=== PATIENT | female | born 1970 | race Hispanic/Latino ===

== ENCOUNTER → 2020-06-11 | Day surgery (SDC) | payer OTHER ==
[~2020-06-11] MED LIST: ACETAMINOPHEN 1000 MG/100 ML 100 ML IV ONE; ATORVASTATIN CA10 MG PO; BUPIVACAINE 0.25% 30ML SDV INJ ONE; CEFAZOLIN SOD 1 GM VIAL ONE; FENTANYL CITRATE/PF 100MCG/2 ML INJ ONE; HEPARIN SOD (PORCINE) 5,000 UNIT/ML VIAL ONE; HYDROMORPHONE 2MG/ML 2 MG/ML ML ONE; INSULIN REGULAR, HUMAN 100 UNIT/1 ML 3ML VIAL ONE; LEVOTHYROXINE75 MCG PO; LIDOCAINE HCL 2% LOCAL INJ 5 ML SDV VIAL INJ ONE; LYRICA75 MG PO; METFORMIN HCL500 MG PO; METOCLOPRAMIDE HCL 10 MG/2ML VIAL ONE; METOPROLOL PO; METOPROLOL TARTRATE INJ 1 MG/ML VIAL ONE; NEURONTIN300 MG PO; NORCO 10-325 T1 EACH PO; ONDANSETRON HCL INJ 2MG/ML 2ML 2 MG/ML VIAL ONE; PROPOFOL IV EMULSION 10 MG/ML 20 ML VIAL ONE; SEVOFLURANE INHAL SOLN 250 ML PEN BTL ONE; SODIUM CHLORIDE 0.9% 500ML 500 ML ONE
--- NOTE | 2020-06-11 13:14 | Operative Report ---
DATE OF PROCEDURE: 06/11/2020 SURGEON: Dustin Chacon MD PREOPERATIVE DIAGNOSIS: Breast cancer, needing IV access for chemotherapy. POSTOPERATIVE DIAGNOSIS: Breast cancer, needing IV access for chemotherapy. OPERATION PERFORMED: Placement of right subclavian venous access port under C-arm guidance. STREET LIGHT INSPECTOR: BRI Fernandez. ANESTHESIA: General. COMPLICATIONS: None. ESTIMATED BLOOD LOSS: Minimal. DESCRIPTION OF PROCEDURE: With the patient lying in bed in the supine position under good general anesthesia, the right chest and neck were prepped with Betadine solution and draped in the usual manner. The patient was placed in the Trendelenburg position and a standard left subclavian venipuncture was performed, and a guidewire was advanced into the central venous position. Using the C-arm the tip of the guidewire was confirmed to be at the level of the superior vena cava and the right lung was fully expanded. A pocket was then created in the right anterior chest to accept the reservoir. The catheter was threaded to the subclavian position. The reservoir was anchored to the anterior chest wall with interrupted sutures of 2-0 silk. The reservoir and catheter were fully heparinized and the catheter was cut to the appropriate length. The peel-away sheath introducer was then placed over the guidewire. The guidewire was removed and the catheter was threaded through the peel-away sheath. The peel-away sheath was then removed. There was good blood return and the reservoir and catheter were fully heparinized. Using the C-arm, the tip of the catheter was confirmed to be at the level of the superior vena cava and the right lung was fully expanded. The wounds were then closed in layers. The subcutaneous tissue was approximated with 3-0 and 4-0 Vicryl, and the skin was closed with subcuticular 5-0 Vicryl. Benzoin, Steri-Strips, and dressings were applied. The sponge, lap, and needle counts were correct. The patient tolerated the procedure well and returned to the recovery room in stable condition. Dustin Chacon MD JLR/MODL /[id number]
[2020-06-11 13:35] VITALS: BP 137/89
== END | disposition home or self-care (01) ==
LOC: OR 08:11
PROVIDERS: ATTEND Surgery
DX: C50.912 Malignant neoplasm of unspecified site of left female breast (principal); I10 Essential (primary) hypertension; E11.9 Type 2 diabetes mellitus without complications; E03.9 Hypothyroidism, unspecified; F32.9 Major depressive disorder, single episode, unspecified; Z01.810 Encounter for preprocedural cardiovascular examination; Z01.812 Encounter for preprocedural laboratory examination; Z11.59 Encounter for screening for other viral diseases; Z79.84 Long term (current) use of oral hypoglycemic drugs
CPT/HCPCS: 36415; 36561; 77001; 82948; 93005; C1751; J0131; J0690; J1170; J1644; J2001; J2405; J2704; J2765; J3010; J7040; U0002; J1817

== ENCOUNTER 2024-02-15 20:42 | Inpatient (IN) | payer BC ==
[~2024-02-15] VITALS: Ht 160 cm; Wt 63.5 kg
[~2024-02-15 20:42] MED LIST changes: -ACETAMINOPHEN 1000 MG/100 ML 100 ML IV ONE; -BUPIVACAINE 0.25% 30ML SDV INJ ONE; -CEFAZOLIN SOD 1 GM VIAL ONE; -FENTANYL CITRATE/PF 100MCG/2 ML INJ ONE; -HEPARIN SOD (PORCINE) 5,000 UNIT/ML VIAL ONE; -HYDROMORPHONE 2MG/ML 2 MG/ML ML ONE; -INSULIN REGULAR, HUMAN 100 UNIT/1 ML 3ML VIAL ONE; -LIDOCAINE HCL 2% LOCAL INJ 5 ML SDV VIAL INJ ONE; -METOCLOPRAMIDE HCL 10 MG/2ML VIAL ONE; -METOPROLOL TARTRATE INJ 1 MG/ML VIAL ONE; -ONDANSETRON HCL INJ 2MG/ML 2ML 2 MG/ML VIAL ONE; -PROPOFOL IV EMULSION 10 MG/ML 20 ML VIAL ONE; -SEVOFLURANE INHAL SOLN 250 ML PEN BTL ONE; -SODIUM CHLORIDE 0.9% 500ML 500 ML ONE
[2024-02-15] MEDS: SODIUM CHLORIDE 0.9% 1000ML 1,000 ML IV ONE ×2 (21:01→22:15)
[2024-02-15] MEDS: ONDANSETRON HCL INJ 2MG/ML 2ML 2 MG/ML VIAL IV STA (21:02)
[2024-02-15] MEDS: Morphine 4mg INJECTION 4 MG/ML INJ IV ONE (21:02)
[2024-02-15 21:03] LABS: BASOPHILS % 0.7 % (0.0-1.0); EOSINOPHILS # (AUTO) 0.1 (0.0-0.4); EOSINOPHILS % 1.2 % (0.0-6.0); HEMATOCRIT 25.1 % (34.2-44.1); HEMOGLOBIN 8.6 g/dL (12.0-16.0); LYMPHOCYTES # (AUTO) 0.6 (1.0-3.2); LYMPHOCYTES % 9.3 % (18.0-39.1); MEAN CORPUSCULAR HEMOGLOBIN 29.9 pg (28-32); MEAN CORPUSCULAR HGB CONC 34.3 g/dL (31-35); MEAN CORPUSCULAR VOLUME 87.2 fL (81-99); MONOCYTES # (AUTO) 0.2 (0.2-0.8); MONOCYTES % 3.7 % (4.4-11.3); NEUTROPHILS # (AUTO) 5.1 (2.1-6.9); NEUTROPHILS % 84.9 % (38.7-80.0); PLATELET COUNT 81 x10e3/uL (140-360); RED BLOOD COUNT 2.88 x10e6/uL (3.6-5.1); RED CELL DISTRIBUTION WIDTH 19.8 % (11.7-14.4); WHITE BLOOD COUNT 6.01 x10e3/uL (4.8-10.8)
[2024-02-15 21:23] LABS: TROPONIN I < 0.05 ng/mL (0.0-0.40)
[2024-02-15 21:28] LABS: ALBUMIN 2.7 g/dL (3.5-5.0); ALBUMIN/GLOBULIN RATIO 0.8 (0.8-2.0); ANION GAP 13.6 mmol/L (8-16); BILIRUBIN,TOTAL 0.9 mg/dL (0.2-1.2); CALCIUM 8.7 mg/dL (8.4-10.2); CREATININE, SERUM 0.9 mg/dL (0.57-1.11); TOTAL PROTEIN 6.2 g/dL (6.5-8.1)
[2024-02-15 21:30] LABS: POTASSIUM 2.6 mmol/L (3.5-5.1)
[2024-02-15 21:32] LABS: LIPASE 55 U/L (8-78)
[2024-02-15] MEDS ORDERED: IOPAMIDOL 370 MG/ML 100 ML INFUS..BTL INJ ONE (21:36)
[2024-02-15] MEDS: POTASSIUM CHLORIDE 20MEQ/100ML 100 ML IV ONE ×2 (21:53→21:54)
[2024-02-15 22:40] LABS: BILIRUBIN,URINE NEGATIVE (NEGATIVE); CLARITY,URINE CLEAR (CLEAR); COLOR,URINE YELLOW (YELLOW); GLUCOSE, URINE NEGATIVE (NEGATIVE); KETONES,URINE NEGATIVE (NEGATIVE); LEUKOCYTE ESTERASE ,URINE TRACE (NEGATIVE); NITRITE,URINE NEGATIVE (NEGATIVE); PH,URINE 6.5 (5 - 7); PROTEIN,URINE DIPSTICK NEGATIVE (NEGATIVE); URINE UROBILINOGEN 0.2 mg/dL (0.2 - 1)
[2024-02-15 23:04] LABS: BACTERIA,URINE MODERATE /HPF; EPITHELIAL CELLS,URINE FEW /LPF; RBC,URINE 0-5 /HPF (0-5)
[2024-02-15] MEDS ORDERED: DEXTROSE 50% SYRINGE 50 ML IV PRN (23:15)
[2024-02-15] MEDS: METRONIDAZOLE 500MG/NS 100ML 100 ML IV SCH (23:20)
[2024-02-15 23:38] VITALS: PULSE 95; RESP 16; O2SAT 98
[2024-02-16] VITALS (10 sets, daily range): BP systolic 117–130; BP diastolic 78–91; PULSE 86–100; RESP 16–20; TEMP 98.2–98.6; O2SAT 95–100
[2024-02-16] MEDS: ACETAMINOPHEN 325 MG TAB PO PRN (00:57)
[2024-02-16] MEDS: KCL 20MEQ/.9 SOD CHL 1,000 ML IV ONE (01:44)
[2024-02-16] MEDS: Morphine 4mg INJECTION 4 MG/ML INJ IV PRN (01:56)
[2024-02-16] MEDS ORDERED: AMBIEN5 MG PO (02:15)
[2024-02-16] MEDS ORDERED: HYDROMORPHO (02:15)
[2024-02-16] MEDS ORDERED: FOLIC ACID0.4 MG PO (02:16)
[2024-02-16] MEDS ORDERED: DILAUDID2 MG PO (05:13)
[2024-02-16 05:23] LABS: BASOPHILS % 0.6 % (0.0-1.0); EOSINOPHILS % 0.6 % (0.0-6.0); HEMATOCRIT 23.7 % (34.2-44.1); HEMOGLOBIN 8.2 g/dL (12.0-16.0); LYMPHOCYTES % 20.2 % (18.0-39.1); MEAN CORPUSCULAR HGB CONC 34.6 g/dL (31-35); MEAN CORPUSCULAR VOLUME 86.8 fL (81-99); MONOCYTES # (AUTO) 0.2 (0.2-0.8); MONOCYTES % 4.4 % (4.4-11.3); NEUTROPHILS # (AUTO) 3.7 (2.1-6.9); NEUTROPHILS % 73.8 % (38.7-80.0); PLATELET COUNT 75 x10e3/uL (140-360); RED BLOOD COUNT 2.73 x10e6/uL (3.6-5.1); RED CELL DISTRIBUTION WIDTH 19.9 % (11.7-14.4)
[2024-02-16 06:11] LABS: ALBUMIN 2.6 g/dL (3.5-5.0); ALBUMIN/GLOBULIN RATIO 0.8 (0.8-2.0); ANION GAP 11.9 mmol/L (8-16); BILIRUBIN,TOTAL 0.9 mg/dL (0.2-1.2); CALCIUM 8.5 mg/dL (8.4-10.2); CREATININE, SERUM 0.74 mg/dL (0.57-1.11); TOTAL PROTEIN 5.8 g/dL (6.5-8.1)
[2024-02-16 06:19] LABS: POTASSIUM 2.9 mmol/L (3.5-5.1)
[2024-02-16] MEDS: POTASSIUM CHLORIDE 20MEQ/100ML 100 ML IV ONE (06:50)
[2024-02-16] MEDS ORDERED: INSULIN REGULAR, HUMAN 100 UNIT/1 ML SQ SCH (07:30)
[2024-02-16] MEDS ORDERED: METRONIDAZOLE 500MG/NS 100ML 100 ML IV SCH (08:00)
[2024-02-16] MEDS ORDERED: DEXTROSE 50% SYRINGE 50 ML IV PRN (08:45)
[2024-02-16] MEDS ORDERED: CHOLESTYRAMINE 4 GM PACKET PO PRN (08:45)
[2024-02-16] MEDS: POTASSIUM CHLORIDE 10MEQ EA PO ONE (09:52)
[2024-02-16 09:53] LABS: MAGNESIUM 1.5 MG/DL (1.3-2.1); PHOSPHORUS 2.6 MG/DL (2.3-4.7)
[2024-02-16] MEDS: HYDROMORPHONE HCL 2 MG TAB PO PRN (09:57)
[2024-02-16] MEDS: LEVOTHYROXINE SODIUM 75 MCG TAB PO SCH (10:02)
[2024-02-16] MEDS: LACTOBACILLUS ACIDOPHILUS CAPSULE PO SCH (10:02)
[2024-02-16] MEDS: PREGABALIN 75 MG CAP PO SCH (10:02)
[2024-02-16] MEDS: VANCOMYCIN HCL 125 MG CAPSULE PO SCH (10:02)
[2024-02-16] MEDS: SOD CHL 0.45%/POT CHL 20MEQ 1,000 ML IV SCH (10:04)
[2024-02-16 10:13] LABS: THYROID STIMULATING HORMONE 7.882 uIU/mL (0.350-4.940)
[2024-02-16] MEDS: INSULIN LISPRO 100 UNIT/1 ML 3ML VIAL SQ SCH (11:30)
[2024-02-16 12:10] LABS: FOLATE 11.2 ng/mL (7.0-15.4)
[2024-02-16] MEDS: ONDANSETRON HCL INJ 2MG/ML 2ML 2 MG/ML VIAL IV PRN (20:11)
[2024-02-16] MEDS: ZOLPIDEM TARTRATE 5 MG TAB PO PRN (22:45)
[2024-02-17] VITALS (9 sets, daily range): BP systolic 108–135; BP diastolic 74–93; PULSE 84–99; RESP 16–18; TEMP 97.6–98.5; O2SAT 97–100
[2024-02-17 05:44] LABS: BASOPHILS % 1.1 % (0.0-1.0); EOSINOPHILS # (AUTO) 0.1 (0.0-0.4); EOSINOPHILS % 4.7 % (0.0-6.0); HEMATOCRIT 22.2 % (34.2-44.1); HEMOGLOBIN 7.5 g/dL (12.0-16.0); LYMPHOCYTES # (AUTO) 0.8 (1.0-3.2); LYMPHOCYTES % 30.7 % (18.0-39.1); MEAN CORPUSCULAR HEMOGLOBIN 29.6 pg (28-32); MEAN CORPUSCULAR HGB CONC 33.8 g/dL (31-35); MEAN CORPUSCULAR VOLUME 87.7 fL (81-99); MONOCYTES # (AUTO) 0.2 (0.2-0.8); MONOCYTES % 8.8 % (4.4-11.3); NEUTROPHILS # (AUTO) 1.5 (2.1-6.9); NEUTROPHILS % 54.3 % (38.7-80.0); PLATELET COUNT 79 x10e3/uL (140-360); RED BLOOD COUNT 2.53 x10e6/uL (3.6-5.1); RED CELL DISTRIBUTION WIDTH 19.8 % (11.7-14.4); WHITE BLOOD COUNT 2.74 x10e3/uL (4.8-10.8)
[2024-02-17 06:21] LABS: ALBUMIN 2.3 g/dL (3.5-5.0); ALBUMIN/GLOBULIN RATIO 0.8 (0.8-2.0); BILIRUBIN,TOTAL 0.6 mg/dL (0.2-1.2); CALCIUM 8.1 mg/dL (8.4-10.2); CREATININE, SERUM 0.7 mg/dL (0.57-1.11); TOTAL PROTEIN 5.2 g/dL (6.5-8.1)
[2024-02-17] MEDS ORDERED: MAGNESIUM SULFATE 2GM/50ML IV ONE (09:30)
[2024-02-17] MEDS: POTASSIUM CHLORIDE 10MEQ EA PO ONE (10:24)
[2024-02-17] MEDS: MAGNESIUM SULFATE 2GM/50ML 50 ML IV ONE (10:25)
[2024-02-17] MEDS: POTASSIUM PHOSPHATE 20 MM in SODIUM CHLORIDE 0.9% 250ML 250 ML IV ONE (11:57)
[2024-02-17] MEDS: ACETAMINOPHEN 325 MG TAB PO STA (11:58)
[2024-02-17] MEDS: DEXAMETHASONE SOD PHOS 10 MG/1 ML VIAL IV ONE (11:58)
[2024-02-17] MEDS: SODIUM CHLORIDE 0.9% 250ML 250 ML IV ONE (16:29)
[2024-02-17] MEDS: FUROSEMIDE INJ 10 MG/ML 2 ML VIAL IV PRN (18:14)
[2024-02-17] MEDS ORDERED: SODIUM CHLORIDE 0.9% 250ML 250 ML ONE (23:17)
[2024-02-18] VITALS: BP 135/91; PULSE 89; RESP 18; TEMP 98.1; O2SAT 95
[2024-02-18 01:30] VITALS: BP 135/91; PULSE 89; RESP 18; TEMP 98.1; O2SAT 95
[2024-02-18 04:00] VITALS: BP 140/89; PULSE 86; RESP 18; TEMP 98.2; O2SAT 100
[2024-02-18] MEDS ORDERED: LEVOTHYROXINE SODIUM 100 MCG TAB ONE (06:10)
[2024-02-18] MEDS: LEVOTHYROXINE SODIUM 100 MCG TAB PO SCH (06:13)
[2024-02-18] MEDS: LEVOTHYROXINE SODIUM 75 MCG TAB PO SCH (06:13)
[2024-02-18 07:16] LABS: BASOPHILS % 0.4 % (0.0-1.0); EOSINOPHILS % 0.2 % (0.0-6.0); HEMOGLOBIN 9.7 g/dL (12.0-16.0); LYMPHOCYTES % 18.6 % (18.0-39.1); MEAN CORPUSCULAR HEMOGLOBIN 29.7 pg (28-32); MEAN CORPUSCULAR HGB CONC 34.6 g/dL (31-35); MEAN CORPUSCULAR VOLUME 85.6 fL (81-99); MONOCYTES # (AUTO) 0.3 (0.2-0.8); MONOCYTES % 5.5 % (4.4-11.3); NEUTROPHILS # (AUTO) 3.8 (2.1-6.9); NEUTROPHILS % 74.7 % (38.7-80.0); PLATELET COUNT 73 x10e3/uL (140-360); RED BLOOD COUNT 3.27 x10e6/uL (3.6-5.1); RED CELL DISTRIBUTION WIDTH 17.6 % (11.7-14.4); WHITE BLOOD COUNT 5.11 x10e3/uL (4.8-10.8)
[2024-02-18 07:47] LABS: ANION GAP 13.2 mmol/L (8-16); CALCIUM 8.2 mg/dL (8.4-10.2); CREATININE, SERUM 0.77 mg/dL (0.57-1.11)
[2024-02-18 07:52] LABS: POTASSIUM 3.2 mmol/L (3.5-5.1)
[2024-02-18 08:07] VITALS: BP 139/85; PULSE 86; RESP 17; TEMP 97.6; O2SAT 99
[2024-02-18 08:39] VITALS: BP 139/85; PULSE 86; RESP 17; TEMP 97.6; O2SAT 99
[2024-02-18] MEDS ORDERED: POTASSIUM CHLORIDE 20 MEQ TAB CR PO ONE (11:12)
[2024-02-18] MEDS: POTASSIUM CHLORIDE 10MEQ EA PO ONE (11:16)
[2024-02-18] MEDS ORDERED: VANCOCIN HCL250 MG PO (12:04)
[2024-02-18] MEDS ORDERED: GLUCOTROL XL2.5 MG PO (12:05)
[2024-02-18] MEDS ORDERED: QUESTRAN PACKET4 GM PO (12:05)
[2024-02-18] MEDS ORDERED: ONDANSETRON ODT4 MG PO (12:07)
[2024-02-18] MEDS: HEPARIN 500 UNITS/5ML MDV INJ ONE (12:56)
== END 2024-02-18 13:51 | disposition home or self-care (01) | DRG 371 ==
LOC: ER 20:47 → ERHOLD 23:09 → MED/SURG3 02-16 01:08
PROVIDERS: ADMIT Internal Medicine; ATTEND Internal Medicine
PROC: 30233N1 Transfusion of Nonautologous Red Blood Cells into Peripheral Vein, Percutaneous Approach (ICD-10-PCS; principal; 2024-02-17)
DX: A04.9 Bacterial intestinal infection, unspecified (principal); D61.810 Antineoplastic chemotherapy induced pancytopenia; C79.31 Secondary malignant neoplasm of brain; E44.0 Moderate protein-calorie malnutrition; E87.6 Hypokalemia; D63.0 Anemia in neoplastic disease; E78.5 Hyperlipidemia, unspecified; I10 Essential (primary) hypertension; E11.9 Type 2 diabetes mellitus without complications; E03.9 Hypothyroidism, unspecified; Z90.12 Acquired absence of left breast and nipple; Z90.49 Acquired absence of other specified parts of digestive tract; C50.912 Malignant neoplasm of unspecified site of left female breast; Z79.890 Hormone replacement therapy; Z79.84 Long term (current) use of oral hypoglycemic drugs; Z79.891 Long term (current) use of opiate analgesic; Z11.52 Encounter for screening for COVID-19; Z79.60 Long term (current) use of unspecified immunomodulators and immunosuppressants; D69.6 Thrombocytopenia, unspecified; E87.8 Other disorders of electrolyte and fluid balance, not elsewhere classified; K76.0 Fatty (change of) liver, not elsewhere classified; Z68.24 Body mass index [BMI] 24.0-24.9, adult
CPT/HCPCS: 36415; 74177; 80048; 80053; 81001; 82607; 82746; 82948; 83540; 83690; 83735; 84100; 84443; 84466; 84484; 85025; 86850; 86900; 86920; 93005; 94799; 99284; J1100; J1940; J2270; J2405; J2543; J3475; J3480; J7030; J7050; P9016; Q9967; U0002

== ENCOUNTER 2024-06-02 22:51 | Inpatient (IN) | payer BC ==
[~2024-06-02] VITALS: Ht 160 cm; Wt 63.5 kg
[~2024-06-02 22:51] MED LIST changes: +AMBIEN5 MG PO; +DILAUDID2 MG PO; +FOLIC ACID0.4 MG PO; +GLUCOTROL XL2.5 MG PO; +HYDROMORPHO; +ONDANSETRON ODT4 MG PO; +QUESTRAN PACKET4 GM PO; +VANCOCIN HCL250 MG PO
[2024-06-03] VITALS (12 sets, daily range): BP systolic 97–131; BP diastolic 67–84; PULSE 88–104; RESP 17–20; TEMP 98–101.6; O2SAT 94–99
[2024-06-03 00:03] LABS: BASOPHILS # (AUTO) 0.1 (0.0-0.1); BASOPHILS % 0.4 % (0.0-1.0); EOSINOPHILS # (AUTO) 0.1 (0.0-0.4); HEMOGLOBIN 7.9 g/dL (12.0-16.0); MEAN CORPUSCULAR HEMOGLOBIN 29.2 pg (28-32); MEAN CORPUSCULAR HGB CONC 30.4 g/dL (31-35); MEAN CORPUSCULAR VOLUME 95.9 fL (81-99); MONOCYTES # (AUTO) 1.2 (0.2-0.8); MONOCYTES % 10.5 % (4.4-11.3); NEUTROPHILS % 78.7 % (38.7-80.0); PLATELET COUNT 212 x10e3/uL (140-360); RED BLOOD COUNT 2.71 x10e6/uL (3.6-5.1); RED CELL DISTRIBUTION WIDTH 17.1 % (11.7-14.4); WHITE BLOOD COUNT 11.44 x10e3/uL (4.8-10.8)
[2024-06-03 00:11] LABS: INR 0.92
[2024-06-03] MEDS: LORAZEPAM INJ 2 MG/ML VIAL IV STA (00:21)
[2024-06-03 00:22] LABS: ALBUMIN/GLOBULIN RATIO 0.7 (0.8-2.0); ANION GAP 16.2 mmol/L (8-16); BILIRUBIN,TOTAL 0.5 mg/dL (0.2-1.2); CALCIUM 9.1 mg/dL (8.4-10.2); CREATININE, SERUM 0.86 mg/dL (0.57-1.11); POTASSIUM 4.2 mmol/L (3.5-5.1); TOTAL PROTEIN 7.2 g/dL (6.5-8.1)
[2024-06-03] MEDS ORDERED: ACETAMINOPHEN 325 MG TAB ONE (00:22)
[2024-06-03] MEDS: SODIUM CHLORIDE 0.9% 1000ML 1,000 ML IV STA (00:22)
[2024-06-03] MEDS: ACETAMINOPHEN 325 MG TAB PO STA (00:23)
[2024-06-03 00:28] LABS: TROPONIN I 0.007 ng/mL (0-0.300)
[2024-06-03] MEDS ORDERED: IOPAMIDOL 370 MG/ML 100 ML INFUS..BTL INJ ONE (00:51)
[2024-06-03] MEDS ORDERED: ONDANSETRON HCL INJ 2MG/ML 2ML 2 MG/ML VIAL IV PRN (01:30)
[2024-06-03] MEDS ORDERED: LORAZEPAM INJ 2 MG/ML VIAL IV PRN (02:15)
[2024-06-03] MEDS: SODIUM CHLORIDE 0.9% 1000ML 1,000 ML IV SCH (02:52)
[2024-06-03] MEDS ORDERED: METOPROLOL SUCC50 MG PO (03:20)
[2024-06-03] MEDS ORDERED: MS CONTIN15 MG PO (03:20)
[2024-06-03] MEDS ORDERED: LANTUS 3ML100 UNITS/ SC (03:20)
[2024-06-03] MEDS ORDERED: JANUMET 50-1,01 EACH PO (03:20)
[2024-06-03] MEDS ORDERED: HYDROXYZINE HCL25 MG PO (03:21)
[2024-06-03] MEDS ORDERED: CYCLOBENZAPRINE5 MG PO (03:22)
[2024-06-03] MEDS ORDERED: TYLENOL EXTRA500 MG PO (03:23)
[2024-06-03 08:15] LABS: TROPONIN I 0.003 ng/mL (0-0.300)
[2024-06-03] MEDS ORDERED: LEVOTHYROXINE SODIUM 75 MCG TAB PO SCH (08:38)
[2024-06-03] MEDS ORDERED: DEXTROSE 50% SYRINGE 50 ML IV PRN (09:00)
[2024-06-03] MEDS: LEVOTHYROXINE SODIUM 125 MCG TAB PO SCH (09:23)
[2024-06-03] MEDS: INSULIN REGULAR, HUMAN 100 UNIT/1 ML SQ SCH (12:29)
[2024-06-03] MEDS: Morphine 4mg INJECTION 4 MG/ML INJ IV PRN (15:22)
[2024-06-03] MEDS: ACETAMINOPHEN 325 MG TAB PO PRN (15:22)
[2024-06-03] MEDS: LORAZEPAM INJ 2 MG/ML VIAL IV PRN (20:07)
[2024-06-03] MEDS: ATORVASTATIN 10 MG TAB PO SCH (20:07)
[2024-06-03] MEDS: INSULIN GLARGINE 100 UNITS/ML VIAL SQ SCH (20:24)
[2024-06-04] VITALS (9 sets, daily range): BP systolic 114–145; BP diastolic 54–89; PULSE 99–116; RESP 16–22; TEMP 98.5–100.3; O2SAT 94–98
[2024-06-04 05:57] LABS: EOSINOPHILS # (AUTO) 0.3 (0.0-0.4); EOSINOPHILS % 4.2 % (0.0-6.0); HEMOGLOBIN 6.8 g/dL (12.0-16.0); LYMPHOCYTES # (AUTO) 0.9 (1.0-3.2); LYMPHOCYTES % 12.7 % (18.0-39.1); MEAN CORPUSCULAR HEMOGLOBIN 28.3 pg (28-32); MEAN CORPUSCULAR HGB CONC 30.1 g/dL (31-35); MEAN CORPUSCULAR VOLUME 94.2 fL (81-99); MONOCYTES # (AUTO) 0.9 (0.2-0.8); MONOCYTES % 13.7 % (4.4-11.3); NEUTROPHILS # (AUTO) 4.7 (2.1-6.9); NEUTROPHILS % 68.8 % (38.7-80.0); PLATELET COUNT 174 x10e3/uL (140-360); RED CELL DISTRIBUTION WIDTH 16.3 % (11.7-14.4); WHITE BLOOD COUNT 6.84 x10e3/uL (4.8-10.8)
[2024-06-04 06:01] LABS: HEMATOCRIT 22.6 % (34.2-44.1)
[2024-06-04] MEDS: SODIUM CHLORIDE 0.9% 250ML 250 ML ONE ×2 (06:31→21:40)
[2024-06-04 06:33] LABS: ALBUMIN 2.5 g/dL (3.5-5.0); ALBUMIN/GLOBULIN RATIO 0.8 (0.8-2.0); ANION GAP 11.1 mmol/L (8-16); BILIRUBIN,TOTAL 0.4 mg/dL (0.2-1.2); CALCIUM 8.7 mg/dL (8.4-10.2); CREATININE, SERUM 0.62 mg/dL (0.57-1.11); TOTAL PROTEIN 5.8 g/dL (6.5-8.1)
[2024-06-04 06:36] LABS: POTASSIUM 3.1 mmol/L (3.5-5.1)
[2024-06-04 07:06] LABS: TROPONIN I 0.002 ng/mL (0-0.300)
[2024-06-04] MEDS: POTASSIUM CHLORIDE 20 MEQ TAB CR PO ONE (14:22)
[2024-06-04] MEDS: LORAZEPAM 0.5 MG TAB PO PRN (18:01)
[2024-06-04] MEDS: SODIUM CHLORIDE 0.9% 250ML 250 ML IV ONE (21:40)
[2024-06-05] VITALS: BP 117/68; PULSE 101; RESP 17; TEMP 97.3; O2SAT 93
[2024-06-05 06:32] LABS: CREATINE KINASE 15 IU/L (29-168)
[2024-06-05 07:01] LABS: TROPONIN I < 0.001 ng/mL (0-0.300)
[2024-06-05 08:16] VITALS: PULSE 98; RESP 18; O2SAT 93
[2024-06-05 08:39] VITALS: PULSE 96; RESP 18; TEMP 97.9; O2SAT 98
[2024-06-05 09:51] VITALS: BP 117/68; PULSE 96; RESP 18; TEMP 97.9; O2SAT 98
[2024-06-05 11:55] VITALS: BP 130/90; PULSE 99; RESP 18; TEMP 98; O2SAT 99
[2024-06-05 16:33] VITALS: BP 137/85; PULSE 105; RESP 20; TEMP 99.3; O2SAT 100
[2024-06-05] MEDS ORDERED: AZITHROMYCIN250 MG PO (18:08)
[2024-06-05 18:24] LABS: HEMATOCRIT 34.5 % (34.2-44.1); HEMOGLOBIN 11.1 g/dL (12.0-16.0)
[2024-06-12] MEDS ORDERED: OMEPRAZOLE40 MG PO (21:35)
[2024-06-12] MEDS ORDERED: AMBIEN10 MG PO (21:35)
[2024-06-12] MEDS ORDERED: mag oxide PO (21:37)
[2024-06-12] MEDS ORDERED: ATIVAN0.5 MG PO (21:37)
== END 2024-06-05 18:49 | disposition home or self-care (01) | DRG 871 ==
LOC: ER 22:58 → ERHOLD 06-03 01:23 → MED/SURG3 06-03 02:22
PROVIDERS: ADMIT Internal Medicine; ATTEND Internal Medicine
PROC: 3E03329 Introduction of Other Anti-infective into Peripheral Vein, Percutaneous Approach (ICD-10-PCS; 2024-06-03)
PROC: 30233N1 Transfusion of Nonautologous Red Blood Cells into Peripheral Vein, Percutaneous Approach (ICD-10-PCS; principal; 2024-06-04)
DX: A41.9 Sepsis, unspecified organism (principal); J18.9 Pneumonia, unspecified organism; J96.01 Acute respiratory failure with hypoxia; C79.31 Secondary malignant neoplasm of brain; E11.65 Type 2 diabetes mellitus with hyperglycemia; Z79.84 Long term (current) use of oral hypoglycemic drugs; F41.9 Anxiety disorder, unspecified; D63.8 Anemia in other chronic diseases classified elsewhere; C50.912 Malignant neoplasm of unspecified site of left female breast; Z90.12 Acquired absence of left breast and nipple; I10 Essential (primary) hypertension; E78.5 Hyperlipidemia, unspecified; E03.9 Hypothyroidism, unspecified; R00.0 Tachycardia, unspecified; G89.4 Chronic pain syndrome; Z99.81 Dependence on supplemental oxygen; Z11.52 Encounter for screening for COVID-19; Z79.899 Other long term (current) drug therapy
CPT/HCPCS: 36415; 71046; 80053; 82550; 82948; 83605; 83690; 83880; 84484; 85014; 85018; 85025; 85610; 86850; 86900; 86920; 87040; 93005; 93306; 94799; 96372; 99284; J1815; J2060; J2270; J2543; J7030; J7050; P9016; Q9967; U0002

== ENCOUNTER 2024-06-22 14:37 | Emergency (ER) | payer BC ==
[~2024-06-22] VITALS: Ht 162.6 cm; Wt 56.2 kg
[~2024-06-22 14:37] MED LIST changes: +AMBIEN10 MG PO; +ATIVAN0.5 MG PO; +AZITHROMYCIN250 MG PO; +CYCLOBENZAPRINE5 MG PO; +HYDROXYZINE HCL25 MG PO; +JANUMET 50-1,01 EACH PO; +LANTUS 3ML100 UNITS/ SC; +METOPROLOL SUCC50 MG PO; +MS CONTIN15 MG PO; +OMEPRAZOLE40 MG PO; +TYLENOL EXTRA500 MG PO; +mag oxide PO
[2024-06-22 14:55] VITALS: PULSE 95; RESP 18; TEMP 97.9
[2024-06-22 16:06] VITALS: BP 125/81; PULSE 85; RESP 18; O2SAT 95
[2024-06-23] MEDS ORDERED: DULOXETINE HCL30 MG PO (04:58)
[2024-06-23] MEDS ORDERED: LANTUS 3ML100 UNITS/ IJ (04:58)
[2024-06-23] MEDS ORDERED: DIAZEPAM5 MG (04:58)
== END 2024-06-22 16:44 | disposition home or self-care (01) ==
LOC: ER 14:45
DX: R06.02 Shortness of breath (principal); F41.9 Anxiety disorder, unspecified; I10 Essential (primary) hypertension; E11.9 Type 2 diabetes mellitus without complications; E78.5 Hyperlipidemia, unspecified; E03.9 Hypothyroidism, unspecified; K21.9 Gastro-esophageal reflux disease without esophagitis; Z99.81 Dependence on supplemental oxygen; Z85.3 Personal history of malignant neoplasm of breast
CPT/HCPCS: 99283

== ENCOUNTER 2024-06-22 22:07 | Inpatient (IN) | payer BC ==
[~2024-06-22] VITALS: Ht 162.6 cm; Wt 56.2 kg
[2024-06-22] MEDS: SODIUM CHLORIDE 0.9% 1000ML 1,000 ML IV STA (22:49)
[2024-06-22 22:52] LABS: BASOPHILS % 0.2 % (0.0-1.0); EOSINOPHILS % 0.4 % (0.0-6.0); HEMATOCRIT 34.4 % (34.2-44.1); HEMOGLOBIN 10.9 g/dL (12.0-16.0); LYMPHOCYTES # (AUTO) 0.7 (1.0-3.2); LYMPHOCYTES % 13.3 % (18.0-39.1); MEAN CORPUSCULAR HEMOGLOBIN 28.2 pg (28-32); MEAN CORPUSCULAR HGB CONC 31.7 g/dL (31-35); MEAN CORPUSCULAR VOLUME 89.1 fL (81-99); MONOCYTES # (AUTO) 0.6 (0.2-0.8); NEUTROPHILS % 73.9 % (38.7-80.0); PLATELET COUNT 120 x10e3/uL (140-360); RED BLOOD COUNT 3.86 x10e6/uL (3.6-5.1); RED CELL DISTRIBUTION WIDTH 15.5 % (11.7-14.4); WHITE BLOOD COUNT 5.35 x10e3/uL (4.8-10.8)
[2024-06-22 23:31] LABS: ALBUMIN 3.4 g/dL (3.5-5.0); ALBUMIN/GLOBULIN RATIO 0.8 (0.8-2.0); ANION GAP 15.7 mmol/L (8-16); BILIRUBIN,TOTAL 0.8 mg/dL (0.2-1.2); CALCIUM 9.7 mg/dL (8.4-10.2); CREATININE, SERUM 0.69 mg/dL (0.57-1.11); TOTAL PROTEIN 7.6 g/dL (6.5-8.1)
[2024-06-22 23:40] LABS: TROPONIN I 0.003 ng/mL (0-0.300)
[2024-06-22] MEDS: KETOROLAC TROMETHAMINE 30 MG/ML VIAL IV STA (23:42)
[2024-06-22 23:43] LABS: POTASSIUM 2.7 mmol/L (3.5-5.1)
[2024-06-22 23:44] LABS: CLARITY,URINE CLEAR (CLEAR); COLOR,URINE YELLOW (YELLOW)
[2024-06-22 23:45] LABS: BILIRUBIN,URINE MODERATE (NEGATIVE); GLUCOSE, URINE NEGATIVE (NEGATIVE); KETONES,URINE 1+ (NEGATIVE); LEUKOCYTE ESTERASE ,URINE SMALL (NEGATIVE); NITRITE,URINE NEGATIVE (NEGATIVE); PH,URINE 7 (5 - 7); PROTEIN,URINE DIPSTICK NEGATIVE (NEGATIVE); URINE UROBILINOGEN 0.2 mg/dL (0.2 - 1)
[2024-06-22] MEDS ORDERED: IOPAMIDOL 370 MG/ML 100 ML INFUS..BTL INJ ONE (23:52)
[2024-06-22 23:59] LABS: BACTERIA,URINE MANY /HPF; EPITHELIAL CELLS,URINE MODERATE /LPF
[2024-06-23] VITALS (10 sets, daily range): BP systolic 145–155; BP diastolic 88–97; PULSE 77–96; RESP 15–18; TEMP 97.8–98.2; O2SAT 96–99
[2024-06-23] MEDS: ONDANSETRON HCL INJ 2MG/ML 2ML 2 MG/ML VIAL IV PRN (01:30)
[2024-06-23] MEDS: SODIUM CHLORIDE 0.9% 1000ML 1,000 ML IV SCH (01:33)
[2024-06-23] MEDS: POTASSIUM CHLORIDE 20MEQ/100ML 100 ML IV STA (01:33)
[2024-06-23] MEDS: Morphine 4mg INJECTION 4 MG/ML INJ IV PRN (01:52)
[2024-06-23] MEDS: POTASSIUM CHLORIDE 20 MEQ TAB CR PO STA (03:26)
[2024-06-23] MEDS ORDERED: LANTUS 3ML100 UNITS/ IJ (04:58)
[2024-06-23] MEDS ORDERED: DULOXETINE HCL30 MG PO (04:58)
[2024-06-23] MEDS ORDERED: DIAZEPAM5 MG (04:58)
[2024-06-23 06:36] LABS: TROPONIN I 0.006 ng/mL (0-0.300)
[2024-06-23] MEDS: DULOXETINE HCL 30 MG DELAYED RELEASE PO SCH (10:53)
[2024-06-23] MEDS: POTASSIUM CHLORIDE 10MEQ EA PO SCH (10:53)
[2024-06-23] MEDS: SOD CHL 0.45%/POT CHL 20MEQ 1,000 ML IV SCH (10:53)
[2024-06-23] MEDS: VANCOMYCIN HCL 125 MG CAPSULE PO SCH (10:53)
[2024-06-23] MEDS: LEVOTHYROXINE SODIUM 75 MCG TAB PO SCH (10:54)
[2024-06-23] MEDS: MAALOX/LIDOCAINE/BENADRYL/NYST 30 ML BTL PO SCH (10:55)
[2024-06-23] MEDS: NYSTATIN SUSPENSION 5 ML UDC PO SCH (10:56)
[2024-06-23] MEDS: LORAZEPAM 0.5 MG TAB PO PRN (14:45)
[2024-06-23] MEDS: GABAPENTIN 300 MG CAP PO SCH (15:19)
[2024-06-23 16:32] LABS: TROPONIN I 0.002 ng/mL (0-0.300)
[2024-06-23] MEDS: SODIUM CHLORIDE 0.9% 250ML 250 ML ONE (19:41)
[2024-06-23] MEDS: POTASSIUM CHLORIDE 10MEQ EA ONE (19:41)
[2024-06-23] MEDS: ATORVASTATIN 10 MG TAB PO SCH (20:04)
[2024-06-23] MEDS: HYDROXYZINE HCL 25 MG TAB PO PRN (20:39)
[2024-06-24] VITALS (8 sets, daily range): BP systolic 136–167; BP diastolic 88–99; PULSE 78–99; RESP 17–21; TEMP 98–98.4; O2SAT 94–98
[2024-06-24 00:15] LABS: % IRON SATURATION 8 % (15-50); IRON 34 ug/dL (50-170); TOTAL IRON BINDING CAPACITY 409 ug/dL (261-478); TRANSFERRIN 292 mg/dL (180-382)
[2024-06-24 01:05] LABS: FOLATE 10.6 ng/mL (7.0-15.4)
[2024-06-24 06:25] LABS: BASOPHILS % 0.5 % (0.0-1.0); EOSINOPHILS # (AUTO) 0.2 (0.0-0.4); EOSINOPHILS % 4.3 % (0.0-6.0); HEMATOCRIT 30.3 % (34.2-44.1); HEMOGLOBIN 9.2 g/dL (12.0-16.0); LYMPHOCYTES # (AUTO) 0.9 (1.0-3.2); LYMPHOCYTES % 22.2 % (18.0-39.1); MEAN CORPUSCULAR HGB CONC 30.4 g/dL (31-35); MEAN CORPUSCULAR VOLUME 92.1 fL (81-99); MONOCYTES # (AUTO) 0.4 (0.2-0.8); MONOCYTES % 8.7 % (4.4-11.3); NEUTROPHILS # (AUTO) 2.7 (2.1-6.9); NEUTROPHILS % 64.1 % (38.7-80.0); PLATELET COUNT 83 x10e3/uL (140-360); RED BLOOD COUNT 3.29 x10e6/uL (3.6-5.1); RED CELL DISTRIBUTION WIDTH 15.3 % (11.7-14.4); WHITE BLOOD COUNT 4.15 x10e3/uL (4.8-10.8)
[2024-06-24 06:52] LABS: ALBUMIN 2.7 g/dL (3.5-5.0); ALBUMIN/GLOBULIN RATIO 0.8 (0.8-2.0); ANION GAP 6.8 mmol/L (8-16); BILIRUBIN,TOTAL 0.5 mg/dL (0.2-1.2); CALCIUM 9.5 mg/dL (8.4-10.2); CREATININE, SERUM 0.64 mg/dL (0.57-1.11); POTASSIUM 3.8 mmol/L (3.5-5.1); TOTAL PROTEIN 6.1 g/dL (6.5-8.1)
[2024-06-24 07:05] LABS: MAGNESIUM 1.7 MG/DL (1.3-2.1); PHOSPHORUS 2.8 MG/DL (2.3-4.7)
[2024-06-24 07:33] LABS: TROPONIN I 0.005 ng/mL (0-0.300)
[2024-06-24] MEDS: METOPROLOL SUCCINATE 50 MG TAB XL PO SCH (08:34)
[2024-06-24] MEDS: ZOLPIDEM TARTRATE 10 MG TAB PO PRN (23:19)
[2024-06-24] MEDS: CYANOCOBALAMIN INJ 1,000 MCG/ML VIAL IM ONE (23:19)
[2024-06-25] VITALS: BP 143/90; PULSE 72; RESP 18; TEMP 98.4; O2SAT 98
[2024-06-25 08:00] VITALS: BP 143/90; PULSE 72; RESP 18; TEMP 98.4; O2SAT 98
[2024-06-25 09:11] VITALS: BP 121/77; PULSE 80; RESP 17; TEMP 98.2; O2SAT 98
[2024-06-25] MEDS ORDERED: SODIUM CHLORIDE 0.9% 100 ML ONE (09:30)
[2024-06-25] MEDS: METRONIDAZOLE 500MG/NS 100ML 100 ML IV SCH (09:42)
[2024-06-25] MEDS: CYANOCOBALAMIN INJ 1,000 MCG/ML VIAL IM SCH (09:43)
[2024-06-25] MEDS: SODIUM FERRIC GLUCONATE COMPLX 125 MG in SODIUM CHLORIDE 0.9% 100 ML IV SCH (11:20)
[2024-06-25 12:21] VITALS: BP 143/96; PULSE 72; RESP 18; TEMP 98.2; O2SAT 99
[2024-06-25] MEDS: MORPHINE SULFATE ER 15 MG TAB PO PRN (15:55)
[2024-06-25 16:16] VITALS: BP 127/82; PULSE 85; RESP 18; TEMP 98.1; O2SAT 98
[2024-06-25 20:00] VITALS: BP 139/95; PULSE 80; RESP 16; TEMP 98; O2SAT 97
[2024-06-26] VITALS (7 sets, daily range): BP systolic 125–154; BP diastolic 81–98; PULSE 74–84; RESP 16–18; TEMP 97.8–98.8; O2SAT 95–100
[2024-06-26 06:05] LABS: BASOPHILS % 0.7 % (0.0-1.0); EOSINOPHILS # (AUTO) 0.2 (0.0-0.4); EOSINOPHILS % 4.3 % (0.0-6.0); HEMATOCRIT 29.9 % (34.2-44.1); HEMOGLOBIN 9.4 g/dL (12.0-16.0); LYMPHOCYTES # (AUTO) 1.1 (1.0-3.2); LYMPHOCYTES % 19.7 % (18.0-39.1); MEAN CORPUSCULAR HEMOGLOBIN 28.6 pg (28-32); MEAN CORPUSCULAR HGB CONC 31.4 g/dL (31-35); MEAN CORPUSCULAR VOLUME 90.9 fL (81-99); MONOCYTES # (AUTO) 0.6 (0.2-0.8); NEUTROPHILS # (AUTO) 3.6 (2.1-6.9); NEUTROPHILS % 64.4 % (38.7-80.0); PLATELET COUNT 97 x10e3/uL (140-360); RED BLOOD COUNT 3.29 x10e6/uL (3.6-5.1); RED CELL DISTRIBUTION WIDTH 15.1 % (11.7-14.4); WHITE BLOOD COUNT 5.52 x10e3/uL (4.8-10.8)
[2024-06-26 06:51] LABS: ANION GAP 9.9 mmol/L (8-16); CALCIUM 9.1 mg/dL (8.4-10.2); CREATININE, SERUM 0.67 mg/dL (0.57-1.11); POTASSIUM 3.9 mmol/L (3.5-5.1)
[2024-06-26] MEDS: LEVOFLOXACIN 500MG/D5W 100ML 100 ML IV SCH (23:03)
[2024-06-27] VITALS (8 sets, daily range): BP systolic 123–146; BP diastolic 74–91; PULSE 73–90; RESP 17–20; TEMP 97.1–99.1; O2SAT 94–98
[2024-06-27 05:50] LABS: ANION GAP 6.8 mmol/L (8-16); CALCIUM 9.3 mg/dL (8.4-10.2); CREATININE, SERUM 0.71 mg/dL (0.57-1.11); POTASSIUM 3.8 mmol/L (3.5-5.1)
[2024-06-27] MEDS: FUROSEMIDE INJ 10 MG/ML 2 ML VIAL IV PRN (21:08)
[2024-06-27] MEDS: SODIUM CHLORIDE 0.9% 250ML 250 ML IV ONE (21:37)
[2024-06-28] VITALS (10 sets, daily range): BP systolic 110–148; BP diastolic 74–93; PULSE 74–85; RESP 18–22; TEMP 98.1–99.5; O2SAT 92–100
[2024-06-28 05:21] LABS: BASOPHILS % 0.4 % (0.0-1.0); EOSINOPHILS # (AUTO) 0.2 (0.0-0.4); EOSINOPHILS % 2.7 % (0.0-6.0); HEMATOCRIT 33.4 % (34.2-44.1); HEMOGLOBIN 10.3 g/dL (12.0-16.0); LYMPHOCYTES % 17.9 % (18.0-39.1); MEAN CORPUSCULAR HEMOGLOBIN 28.5 pg (28-32); MEAN CORPUSCULAR HGB CONC 30.8 g/dL (31-35); MEAN CORPUSCULAR VOLUME 92.5 fL (81-99); MONOCYTES # (AUTO) 0.6 (0.2-0.8); MONOCYTES % 11.7 % (4.4-11.3); NEUTROPHILS # (AUTO) 3.5 (2.1-6.9); NEUTROPHILS % 64.4 % (38.7-80.0); PLATELET COUNT 118 x10e3/uL (140-360); RED BLOOD COUNT 3.61 x10e6/uL (3.6-5.1); RED CELL DISTRIBUTION WIDTH 15.8 % (11.7-14.4); WHITE BLOOD COUNT 5.46 x10e3/uL (4.8-10.8)
[2024-06-28 05:46] LABS: ANION GAP 10.7 mmol/L (8-16); CALCIUM 8.7 mg/dL (8.4-10.2); CREATININE, SERUM 0.8 mg/dL (0.57-1.11); POTASSIUM 3.7 mmol/L (3.5-5.1)
[2024-06-28] MEDS: Morphine 4mg INJECTION 4 MG/ML INJ IV PRN (10:14)
[2024-06-28] MEDS: NYSTATIN SUSPENSION 5 ML UDC PO SCH (11:59)
[2024-06-28] MEDS: LORAZEPAM 0.5 MG TAB PO PRN (11:59)
[2024-06-28] MEDS: MORPHINE SULFATE IR 15 MG TABLET PO PRN (14:19)
[2024-06-28] MEDS: VANCOMYCIN HCL 125 MG CAPSULE PO SCH (14:19)
[2024-06-28] MEDS: ZOLPIDEM TARTRATE 10 MG TAB PO PRN (20:35)
[2024-06-28] MEDS: MORPHINE SULFATE ER 15 MG TAB PO SCH (20:35)
[2024-06-28] MEDS: HYDROCODONE/APAP 10MG-325MG TAB PO PRN (22:38)
[2024-06-29] MEDS: LEVOFLOXACIN 500MG/D5W 100ML 100 ML IV SCH (01:16)
[2024-06-29 03:07] VITALS: BP 122/85; PULSE 79; RESP 18; TEMP 97.9; O2SAT 99
[2024-06-29 06:31] VITALS: PULSE 83; RESP 22; O2SAT 95
[2024-06-29 08:00] VITALS: BP 157/97; PULSE 79; RESP 17; TEMP 98.4; O2SAT 98
[2024-06-29 09:00] VITALS: BP 157/97; PULSE 79; RESP 17; TEMP 98.4; O2SAT 98
[2024-06-29 09:14] VITALS: BP 157/97; PULSE 79
[2024-06-29] MEDS: PANTOPRAZOLE SOD 40 MG TABEC PO SCH (09:15)
== END 2024-06-29 11:25 | disposition home or self-care (01) | DRG 372 ==
LOC: ER 22:15 → ERHOLD 06-23 00:59 → MED/SURG2 06-23 02:45
PROVIDERS: ADMIT Internal Medicine; ATTEND Internal Medicine
PROC: 30233N1 Transfusion of Nonautologous Red Blood Cells into Peripheral Vein, Percutaneous Approach (ICD-10-PCS; principal; 2024-06-27)
DX: A04.9 Bacterial intestinal infection, unspecified (principal); C79.31 Secondary malignant neoplasm of brain; J70.1 Chronic and other pulmonary manifestations due to radiation; J70.8 Respiratory conditions due to other specified external agents; J98.4 Other disorders of lung; E87.6 Hypokalemia; E87.8 Other disorders of electrolyte and fluid balance, not elsewhere classified; C50.912 Malignant neoplasm of unspecified site of left female breast; K12.0 Recurrent oral aphthae; T45.1X5S Adverse effect of antineoplastic and immunosuppressive drugs, sequela; J70.4 Drug-induced interstitial lung disorders, unspecified; D50.9 Iron deficiency anemia, unspecified; R53.81 Other malaise; E11.9 Type 2 diabetes mellitus without complications; Z79.4 Long term (current) use of insulin; K21.9 Gastro-esophageal reflux disease without esophagitis; E78.5 Hyperlipidemia, unspecified; E03.9 Hypothyroidism, unspecified; Z90.12 Acquired absence of left breast and nipple; Z92.21 Personal history of antineoplastic chemotherapy; Z92.3 Personal history of irradiation; Z79.899 Other long term (current) drug therapy
CPT/HCPCS: 36415; 71045; 74177; 80048; 80053; 81001; 82550; 82607; 82746; 82948; 83540; 83605; 83630; 83690; 83735; 83880; 83993; 84100; 84466; 84484; 85025; 85045; 86850; 86900; 86920; 87045; 87177; 87324; 87449; 93005; 94799; 99252; 99284; J1885; J1940; J1956; J2270; J2405; J2470; J2543; J2916; J3410; J3420; J3480; J7030; J7050; P9016; Q9967

== ENCOUNTER 2024-07-22 09:32 | Emergency (ER) | payer BC ==
[~2024-07-22] VITALS: Ht 162.6 cm; Wt 56.2 kg
[2024-07-22 09:32] VITALS: TEMP 97.6
[~2024-07-22 09:32] MED LIST changes: +DIAZEPAM5 MG; +DULOXETINE HCL30 MG PO; +LANTUS 3ML100 UNITS/ IJ
[2024-07-22] MEDS: LORAZEPAM INJ 2 MG/ML VIAL IV ONE (10:28)
[2024-07-22] MEDS: SODIUM CHLORIDE 0.9% 1000ML 1,000 ML IV STA (10:28)
[2024-07-22] MEDS: ONDANSETRON HCL INJ 2MG/ML 2ML 2 MG/ML VIAL IV STA (10:29)
[2024-07-22 11:22] LABS: BASOPHILS % 0.5 % (0.0-1.0); EOSINOPHILS # (AUTO) 0.1 (0.0-0.4); EOSINOPHILS % 2.2 % (0.0-6.0); HEMATOCRIT 43.4 % (34.2-44.1); HEMOGLOBIN 14.1 g/dL (12.0-16.0); LYMPHOCYTES # (AUTO) 1.4 (1.0-3.2); LYMPHOCYTES % 24.4 % (18.0-39.1); MEAN CORPUSCULAR HEMOGLOBIN 29.6 pg (28-32); MEAN CORPUSCULAR HGB CONC 32.5 g/dL (31-35); MONOCYTES # (AUTO) 0.5 (0.2-0.8); MONOCYTES % 8.9 % (4.4-11.3); NEUTROPHILS # (AUTO) 3.7 (2.1-6.9); NEUTROPHILS % 63.8 % (38.7-80.0); PLATELET COUNT 116 x10e3/uL (140-360); RED BLOOD COUNT 4.77 x10e6/uL (3.6-5.1); RED CELL DISTRIBUTION WIDTH 15.8 % (11.7-14.4); WHITE BLOOD COUNT 5.85 x10e3/uL (4.8-10.8)
[2024-07-22 11:28] LABS: INR 0.97; PROTHROMBIN TIME 13.4 seconds (11.9-14.5)
[2024-07-22 11:29] LABS: PARTIAL THROMBOPLASTIN TIME 36.3 seconds (23.8-35.5)
[2024-07-22 11:30] VITALS: PULSE 80; RESP 17; O2SAT 98
[2024-07-22 11:40] LABS: ALBUMIN 3.6 g/dL (3.5-5.0); ALBUMIN/GLOBULIN RATIO 0.9 (0.8-2.0); ANION GAP 16.3 mmol/L (8-16); CALCIUM 10.3 mg/dL (8.4-10.2); CREATININE, SERUM 0.74 mg/dL (0.57-1.11); MAGNESIUM 1.5 MG/DL (1.3-2.1); TOTAL PROTEIN 7.8 g/dL (6.5-8.1)
[2024-07-22 11:48] LABS: POTASSIUM 3.3 mmol/L (3.5-5.1)
[2024-07-22 11:49] LABS: TROPONIN I 0.001 ng/mL (0-0.300)
[2024-07-22] MEDS ORDERED: HYDROXYZINE HCL50 MG PO (12:56)
[2024-07-22 13:27] VITALS: BP 145/86; PULSE 88; RESP 16
[2024-07-23] MEDS ORDERED: POTASSIUM CHLO10 ME1 PO (22:44)
== END 2024-07-22 13:20 | disposition home or self-care (01) ==
LOC: ER 09:42
DX: R06.02 Shortness of breath (principal); R07.89 Other chest pain; F41.9 Anxiety disorder, unspecified; E11.65 Type 2 diabetes mellitus with hyperglycemia; I10 Essential (primary) hypertension; E78.5 Hyperlipidemia, unspecified; E03.9 Hypothyroidism, unspecified; K21.9 Gastro-esophageal reflux disease without esophagitis; Z85.3 Personal history of malignant neoplasm of breast; Z85.841 Personal history of malignant neoplasm of brain; R94.31 Abnormal electrocardiogram [ECG] [EKG]
CPT/HCPCS: 36415; 71045; 80053; 82550; 83735; 84484; 85025; 85379; 85610; 85730; 93005; 99284; J2060; J2405; J7030

== ENCOUNTER 2024-07-23 18:17 | Emergency (ER) | payer BC ==
[~2024-07-23] VITALS: Ht 162.6 cm; Wt 56.2 kg
[~2024-07-23 18:17] MED LIST changes: +HYDROXYZINE HCL50 MG PO
[2024-07-23 20:09] VITALS: TEMP 97.9
[2024-07-23] MEDS: KETOROLAC TROMETHAMINE 30 MG/ML VIAL IV STA (20:38)
[2024-07-23] MEDS: HYDROXYZINE HCL 25 MG TAB PO ONE (20:39)
[2024-07-23] MEDS: ORPHENADRINE CITRATE 30 MG/ML VIAL IM ONE (20:39)
[2024-07-23 20:47] LABS: BASOPHILS # (AUTO) 0.1 (0.0-0.1); BASOPHILS % 0.6 % (0.0-1.0); EOSINOPHILS # (AUTO) 0.3 (0.0-0.4); EOSINOPHILS % 2.8 % (0.0-6.0); HEMATOCRIT 41.5 % (34.2-44.1); HEMOGLOBIN 13.2 g/dL (12.0-16.0); LYMPHOCYTES # (AUTO) 1.7 (1.0-3.2); LYMPHOCYTES % 16.5 % (18.0-39.1); MEAN CORPUSCULAR HEMOGLOBIN 29.3 pg (28-32); MEAN CORPUSCULAR HGB CONC 31.8 g/dL (31-35); MEAN CORPUSCULAR VOLUME 92.2 fL (81-99); MONOCYTES # (AUTO) 0.9 (0.2-0.8); MONOCYTES % 8.6 % (4.4-11.3); NEUTROPHILS # (AUTO) 7.5 (2.1-6.9); NEUTROPHILS % 71.1 % (38.7-80.0); PLATELET COUNT 133 x10e3/uL (140-360); RED CELL DISTRIBUTION WIDTH 15.9 % (11.7-14.4); WHITE BLOOD COUNT 10.54 x10e3/uL (4.8-10.8)
[2024-07-23 21:03] LABS: ALBUMIN 3.6 g/dL (3.5-5.0); ALBUMIN/GLOBULIN RATIO 0.9 (0.8-2.0); ANION GAP 15.8 mmol/L (8-16); BILIRUBIN,TOTAL 0.8 mg/dL (0.2-1.2); CREATININE, SERUM 0.79 mg/dL (0.57-1.11); TOTAL PROTEIN 7.7 g/dL (6.5-8.1)
[2024-07-23 21:07] LABS: POTASSIUM 2.8 mmol/L (3.5-5.1)
[2024-07-23 21:09] LABS: TROPONIN I 0.007 ng/mL (0-0.300)
[2024-07-23 22:32] VITALS: PULSE 76; RESP 16
[2024-07-23] MEDS: POTASSIUM CHLORIDE 20 MEQ TAB CR PO STA (22:33)
[2024-07-23] MEDS ORDERED: POTASSIUM CHLO10 ME1 PO (22:44)
[2024-07-23] MEDS: LORAZEPAM 1 MG TAB PO PRN (23:03)
[2024-07-23 23:29] VITALS: BP 137/94; PULSE 72; RESP 12; TEMP 98.6; O2SAT 98
== END 2024-07-23 23:36 | disposition home or self-care (01) ==
LOC: ER 18:41
DX: R06.02 Shortness of breath (principal); E87.6 Hypokalemia; F41.9 Anxiety disorder, unspecified; I10 Essential (primary) hypertension; E11.9 Type 2 diabetes mellitus without complications; E78.5 Hyperlipidemia, unspecified; E03.9 Hypothyroidism, unspecified; M54.9 Dorsalgia, unspecified; G89.29 Other chronic pain; R94.31 Abnormal electrocardiogram [ECG] [EKG]; Z85.3 Personal history of malignant neoplasm of breast; Z85.841 Personal history of malignant neoplasm of brain
CPT/HCPCS: 36415; 80053; 82550; 84484; 85025; 93005; 99283; J1885; J2360; J3410

== ENCOUNTER 2024-08-01 12:01 | Emergency (ER) | payer BC ==
[~2024-08-01] VITALS: Ht 162.6 cm; Wt 56.2 kg
[~2024-08-01 12:01] MED LIST changes: +POTASSIUM CHLO10 ME1 PO
[2024-08-01 12:07] VITALS: TEMP 97.7
[2024-08-01 12:36] LABS: BASOPHILS % 0.2 % (0.0-1.0); HEMATOCRIT 42.8 % (34.2-44.1); HEMOGLOBIN 13.9 g/dL (12.0-16.0); LYMPHOCYTES # (AUTO) 1.3 (1.0-3.2); LYMPHOCYTES % 12.5 % (18.0-39.1); MEAN CORPUSCULAR HEMOGLOBIN 29.1 pg (28-32); MEAN CORPUSCULAR HGB CONC 32.5 g/dL (31-35); MEAN CORPUSCULAR VOLUME 89.5 fL (81-99); MONOCYTES # (AUTO) 0.7 (0.2-0.8); MONOCYTES % 7.1 % (4.4-11.3); NEUTROPHILS # (AUTO) 8.2 (2.1-6.9); NEUTROPHILS % 79.9 % (38.7-80.0); PLATELET COUNT 159 x10e3/uL (140-360); RED BLOOD COUNT 4.78 x10e6/uL (3.6-5.1); RED CELL DISTRIBUTION WIDTH 15.1 % (11.7-14.4); WHITE BLOOD COUNT 10.29 x10e3/uL (4.8-10.8)
[2024-08-01 13:00] LABS: ALBUMIN 4.2 g/dL (3.5-5.0); ALBUMIN/GLOBULIN RATIO 0.9 (0.8-2.0); ANION GAP 16.9 mmol/L (8-16); BILIRUBIN,TOTAL 0.8 mg/dL (0.2-1.2); CALCIUM 10.6 mg/dL (8.4-10.2); CREATININE, SERUM 0.96 mg/dL (0.57-1.11); POTASSIUM 3.9 mmol/L (3.5-5.1); TOTAL PROTEIN 8.7 g/dL (6.5-8.1)
[2024-08-01] MEDS ORDERED: IOPAMIDOL 370 MG/ML 100 ML INFUS..BTL INJ ONE (13:22)
[2024-08-01] MEDS: SODIUM CHLORIDE 0.9% 1000ML 1,000 ML IV ONE (13:58)
[2024-08-01 15:24] VITALS: PULSE 88; RESP 18; O2SAT 100
[2024-08-01] MEDS: ACETAMINOPHEN 325 MG TAB PO ONE (16:28)
[2024-08-01] MEDS: KETOROLAC TROMETHAMINE 30 MG/ML VIAL IV STA (16:28)
[2024-08-01] MEDS: INSULIN REGULAR, HUMAN 100 UNIT/1 ML IV ONE (16:39)
[2024-08-01] MEDS: HALOPERIDOL LACTATE 5 MG/ML VIAL IV ONE (16:39)
== END 2024-08-01 16:41 | disposition home or self-care (01) ==
LOC: ER 12:07
DX: R51.9 Headache, unspecified (principal); R11.2 Nausea with vomiting, unspecified; E11.65 Type 2 diabetes mellitus with hyperglycemia; R10.30 Lower abdominal pain, unspecified; E78.5 Hyperlipidemia, unspecified; K59.00 Constipation, unspecified; K76.0 Fatty (change of) liver, not elsewhere classified; E27.9 Disorder of adrenal gland, unspecified; I10 Essential (primary) hypertension; E03.9 Hypothyroidism, unspecified; D64.9 Anemia, unspecified; K21.9 Gastro-esophageal reflux disease without esophagitis; F41.9 Anxiety disorder, unspecified; Z85.3 Personal history of malignant neoplasm of breast; C79.31 Secondary malignant neoplasm of brain
CPT/HCPCS: 36415; 70450; 74177; 80053; 82948; 83036; 83690; 85025; 99284; J1885; J7030; Q9967

== ENCOUNTER 2024-09-01 16:31 | Emergency (ER) | payer BC ==
[~2024-09-01] VITALS: Ht 162.6 cm; Wt 56.2 kg
[2024-09-01 16:36] VITALS: PULSE 99; RESP 16; TEMP 98.4; O2SAT 96
== END 2024-09-01 17:53 | disposition left against medical advice (07) ==
LOC: ER 16:39
DX: L72.9 Follicular cyst of the skin and subcutaneous tissue, unspecified (principal)
CPT/HCPCS: 99283

== ENCOUNTER 2025-02-14 17:03 | Inpatient (IN) | payer BC ==
[~2025-02-14] VITALS: Ht 162.6 cm; Wt 56.2 kg
[2025-02-14 17:04] VITALS: TEMP 98.4
[2025-02-14 18:22] LABS: BASOPHILS % 0.4 % (0.0-1.0); EOSINOPHILS # (AUTO) 0.1 (0.0-0.4); EOSINOPHILS % 1.4 % (0.0-6.0); HEMATOCRIT 23.9 % (34.2-44.1); HEMOGLOBIN 7.2 g/dL (12.0-16.0); LYMPHOCYTES # (AUTO) 1.3 (1.0-3.2); LYMPHOCYTES % 18.9 % (18.0-39.1); MEAN CORPUSCULAR HEMOGLOBIN 25.4 pg (28-32); MEAN CORPUSCULAR HGB CONC 30.1 g/dL (31-35); MEAN CORPUSCULAR VOLUME 84.5 fL (81-99); MONOCYTES # (AUTO) 0.6 (0.2-0.8); MONOCYTES % 8.1 % (4.4-11.3); NEUTROPHILS # (AUTO) 4.9 (2.1-6.9); NEUTROPHILS % 70.6 % (38.7-80.0); PLATELET COUNT 291 x10e3/uL (140-360); RED BLOOD COUNT 2.83 x10e6/uL (3.6-5.1); WHITE BLOOD COUNT 6.93 x10e3/uL (4.8-10.8)
[2025-02-14 18:23] LABS: BILIRUBIN,URINE NEGATIVE (NEGATIVE); CLARITY,URINE CLEAR (CLEAR); COLOR,URINE YELLOW (YELLOW); GLUCOSE, URINE 500 (NEGATIVE); KETONES,URINE NEGATIVE (NEGATIVE); LEUKOCYTE ESTERASE ,URINE NEGATIVE (NEGATIVE); NITRITE,URINE NEGATIVE (NEGATIVE); PH,URINE 7 (5 - 7); PROTEIN,URINE DIPSTICK NEGATIVE (NEGATIVE); URINE UROBILINOGEN 0.2 mg/dL (0.2 - 1)
[2025-02-14] MEDS: ONDANSETRON HCL INJ 2MG/ML 2ML 2 MG/ML VIAL IV STA (18:26)
[2025-02-14] MEDS: SODIUM CHLORIDE 0.9% 1000ML 1,000 ML IV ONE (18:26)
[2025-02-14] MEDS: KETOROLAC TROMETHAMINE 30 MG/ML VIAL IV STA (18:30)
[2025-02-14 18:35] LABS: ALBUMIN 3.2 g/dL (3.5-5.0); ALBUMIN/GLOBULIN RATIO 1.1 (0.8-2.0); ANION GAP 13.8 mmol/L (8-16); BILIRUBIN,TOTAL 0.2 mg/dL (0.2-1.2); CREATININE, SERUM 0.86 mg/dL (0.57-1.11); POTASSIUM 3.8 mmol/L (3.5-5.1)
[2025-02-14 18:37] LABS: EPITHELIAL CELLS,URINE RARE /LPF
[2025-02-14] MEDS ORDERED: IOPAMIDOL 370 MG/ML 100 ML INFUS..BTL INJ ONE ×2 (18:42→22:42)
[2025-02-14] MEDS: INSULIN REGULAR, HUMAN 100 UNIT/1 ML SQ SCH (21:00)
[2025-02-14] MEDS ORDERED: ONDANSETRON HCL INJ 2MG/ML 2ML 2 MG/ML VIAL IV PRN (21:00)
[2025-02-14] MEDS ORDERED: DEXTROSE 50% SYRINGE 50 ML IV PRN (21:00)
[2025-02-14 21:32] VITALS: PULSE 106; RESP 18
[2025-02-14 22:25] VITALS: BP 137/93; O2SAT 100
[2025-02-15] VITALS (12 sets, daily range): BP systolic 135–166; BP diastolic 83–96; PULSE 87–123; RESP 16–20; TEMP 98.1–99; O2SAT 97–100
[2025-02-15] MEDS: MORPHINE SULFATE ER 15 MG TAB PO PRN (00:04)
[2025-02-15] MEDS: ZOLPIDEM TARTRATE 10 MG TAB PO PRN (00:04)
[2025-02-15] MEDS ORDERED: BUSPIRONE HCL10 MG PO (01:47)
[2025-02-15] MEDS ORDERED: AUGMENTIN 500-1 EACH PO (01:47)
[2025-02-15] MEDS ORDERED: TRESIBA FL100 UNIT/1 (01:49)
[2025-02-15] MEDS ORDERED: ALBUTEROL (01:58)
[2025-02-15] MEDS ORDERED: METFORMIN HCL500 MG PO (01:58)
[2025-02-15] MEDS ORDERED: JANUMET 50-1,01 EACH (01:58)
[2025-02-15] MEDS ORDERED: LORAZEPAM 0.5 MG TAB PO PRN (08:30)
[2025-02-15] MEDS ORDERED: HYDROXYZINE HCL 25 MG TAB PO PRN (08:30)
[2025-02-15] MEDS ORDERED: BISACODYL 10 MG SUPP PR PRN (08:30)
[2025-02-15] MEDS ORDERED: CYCLOBENZAPRINE HCL 10 MG TAB PO PRN (08:30)
[2025-02-15] MEDS ORDERED: PEG (High)/E-LYTE SOLN 4,000 ML BTL PO PRN (08:45)
[2025-02-15] MEDS: METOPROLOL SUCCINATE 50 MG TAB XL PO SCH (09:00)
[2025-02-15] MEDS: MAGNESIUM OXIDE 400 MG TAB PO SCH (10:11)
[2025-02-15] MEDS: MAGNESIUM HYDROXIDE 30 ML UDC PO ONE (10:11)
[2025-02-15] MEDS: GABAPENTIN 300 MG CAP PO SCH (10:11)
[2025-02-15] MEDS: LEVOTHYROXINE SODIUM 75 MCG TAB PO SCH (10:12)
[2025-02-15] MEDS: BUSPIRONE HCL 10 MG TABLET PO SCH (10:12)
[2025-02-15] MEDS: SENNA-S TABLET PO SCH (10:13)
[2025-02-15] MEDS: BISACODYL 10 MG SUPP PR ONE (10:13)
[2025-02-15] MEDS: SODIUM CHLORIDE 0.9% 1000ML 1,000 ML IV SCH (10:14)
[2025-02-15] MEDS: HYDROMORPHONE HCL 2 MG TAB PO PRN (10:21)
[2025-02-15 11:48] LABS: BASOPHILS % 0.4 % (0.0-1.0); EOSINOPHILS # (AUTO) 0.2 (0.0-0.4); HEMATOCRIT 25.9 % (34.2-44.1); HEMOGLOBIN 8.2 g/dL (12.0-16.0); LYMPHOCYTES # (AUTO) 1.1 (1.0-3.2); LYMPHOCYTES % 13.9 % (18.0-39.1); MEAN CORPUSCULAR HEMOGLOBIN 26.1 pg (28-32); MEAN CORPUSCULAR HGB CONC 31.7 g/dL (31-35); MEAN CORPUSCULAR VOLUME 82.5 fL (81-99); MONOCYTES # (AUTO) 0.7 (0.2-0.8); MONOCYTES % 8.2 % (4.4-11.3); NEUTROPHILS # (AUTO) 6.1 (2.1-6.9); PLATELET COUNT 236 x10e3/uL (140-360); RED BLOOD COUNT 3.14 x10e6/uL (3.6-5.1); RED CELL DISTRIBUTION WIDTH 17.2 % (11.7-14.4); WHITE BLOOD COUNT 8.07 x10e3/uL (4.8-10.8)
[2025-02-15 12:24] LABS: ALBUMIN/GLOBULIN RATIO 1.1 (0.8-2.0); ANION GAP 13.7 mmol/L (8-16); BILIRUBIN,TOTAL 0.4 mg/dL (0.2-1.2); CALCIUM 8.6 mg/dL (8.4-10.2); CREATININE, SERUM 0.64 mg/dL (0.57-1.11); POTASSIUM 3.7 mmol/L (3.5-5.1); TOTAL PROTEIN 5.7 g/dL (6.5-8.1)
[2025-02-15] MEDS: INSULIN GLARGINE 100 UNITS/ML VIAL SQ SCH (21:00)
[2025-02-15] MEDS: ATORVASTATIN 10 MG TAB PO SCH (22:09)
[2025-02-15] MEDS: SODIUM CHLORIDE 0.9% 250ML 250 ML ONE ×2 (22:11)
[2025-02-15] MEDS: SODIUM CHLORIDE 0.9% 250ML 250 ML IV ONE (22:11)
[2025-02-16 03:12] LABS: % IRON SATURATION 4 % (15-50); IRON 23 ug/dL (50-170); TOTAL IRON BINDING CAPACITY 518 ug/dL (261-478); TRANSFERRIN 370 mg/dL (180-382)
[2025-02-16 05:54] LABS: RED BLOOD COUNT 3.14 x10e6/uL (3.6-5.1); WHITE BLOOD COUNT 6.63 x10e3/uL (4.8-10.8)
[2025-02-16 05:55] LABS: BASOPHILS % 0.5 % (0.0-1.0); CALCIUM 7.8 mg/dL (8.4-10.2); CREATININE, SERUM 0.71 mg/dL (0.57-1.11); HEMATOCRIT 26.3 % (34.2-44.1); HEMOGLOBIN 8.3 g/dL (12.0-16.0); LYMPHOCYTES % 14.9 % (18.0-39.1); MEAN CORPUSCULAR HEMOGLOBIN 26.4 pg (28-32); MEAN CORPUSCULAR HGB CONC 31.6 g/dL (31-35); MEAN CORPUSCULAR VOLUME 83.8 fL (81-99); PLATELET COUNT 195 x10e3/uL (140-360); RED CELL DISTRIBUTION WIDTH 17.4 % (11.7-14.4)
[2025-02-16 05:56] LABS: EOSINOPHILS # (AUTO) 0.2 (0.0-0.4); MONOCYTES # (AUTO) 0.7 (0.2-0.8); NEUTROPHILS # (AUTO) 4.7 (2.1-6.9)
[2025-02-16 07:30] VITALS: BP 146/91; PULSE 87; RESP 16; TEMP 98.1; O2SAT 100
[2025-02-16] MEDS: LUBIPROSTONE 24 MCG CAP PO SCH (08:41)
[2025-02-16 09:45] VITALS: BP 146/91; PULSE 87; RESP 16; TEMP 98.1; O2SAT 100
[2025-02-16 09:46] VITALS: BP 146/91; RESP 16; TEMP 98.1; O2SAT 100
[2025-02-16 11:32] VITALS: BP 147/86; PULSE 87; RESP 18; TEMP 98.1; O2SAT 100
[2025-02-16 17:08] VITALS: BP 119/73; PULSE 81; RESP 19; TEMP 98.2; O2SAT 100
[2025-02-16 20:00] VITALS: BP 133/85; PULSE 81; RESP 19; TEMP 98.2; O2SAT 100
[2025-02-16] MEDS: KETOROLAC TROMETHAMINE 30 MG/ML VIAL IV STA (21:36)
[2025-02-16] MEDS: MAGNESIUM HYDROXIDE 30 ML UDC PO PRN (21:41)
[2025-02-16] MEDS: METOCLOPRAMIDE HCL 10 MG/2ML VIAL IV ONE (21:46)
[2025-02-17] VITALS: BP_SYST 138; BP_SYST 140; BP_DIAS 80; BP_DIAS 89; PULSE 85; PULSE 89; RESP 19; TEMP 98.6; TEMP 98.9; O2SAT 100
[2025-02-17] MEDS: METOCLOPRAMIDE HCL 10 MG/2ML VIAL IV SCH (00:36)
[2025-02-17 04:25] VITALS: BP 138/89; PULSE 80; RESP 19; TEMP 97.2; O2SAT 100
[2025-02-17 08:00] VITALS: BP 135/87; PULSE 92; RESP 17; TEMP 98.1; O2SAT 99
[2025-02-17] MEDS: IRON SUCROSE 100 MG in SODIUM CHLORIDE 0.9% 100 ML IV SCH (08:29)
[2025-02-17 09:00] VITALS: BP 135/87; PULSE 92; RESP 17; TEMP 98.1; O2SAT 99
[2025-02-17] MEDS ORDERED: LINZESS145 MCG (11:26)
[2025-02-17] MEDS ORDERED: MIRALAX17 GM PO (11:27)
[2025-02-17] MEDS ORDERED: SENOKOT-S TABL1 EACH PO (11:30)
== END 2025-02-17 11:45 | disposition home or self-care (01) | DRG 392 ==
LOC: ER 18:12 → ERHOLD 20:56 → MED/SURG3 22:09
PROVIDERS: ADMIT Internal Medicine; ATTEND Internal Medicine
PROC: 30233N1 Transfusion of Nonautologous Red Blood Cells into Peripheral Vein, Percutaneous Approach (ICD-10-PCS; principal; 2025-02-15)
DX: K59.00 Constipation, unspecified (principal); R11.10 Vomiting, unspecified; I10 Essential (primary) hypertension; E78.5 Hyperlipidemia, unspecified; E11.65 Type 2 diabetes mellitus with hyperglycemia; Z79.84 Long term (current) use of oral hypoglycemic drugs; K21.9 Gastro-esophageal reflux disease without esophagitis; D50.9 Iron deficiency anemia, unspecified; D63.8 Anemia in other chronic diseases classified elsewhere; R00.0 Tachycardia, unspecified; E03.9 Hypothyroidism, unspecified; F41.8 Other specified anxiety disorders; F17.200 Nicotine dependence, unspecified, uncomplicated; G89.29 Other chronic pain; K76.0 Fatty (change of) liver, not elsewhere classified; K44.9 Diaphragmatic hernia without obstruction or gangrene; M54.10 Radiculopathy, site unspecified; Z85.3 Personal history of malignant neoplasm of breast; Z85.841 Personal history of malignant neoplasm of brain; Z90.12 Acquired absence of left breast and nipple; Z90.49 Acquired absence of other specified parts of digestive tract; Z79.891 Long term (current) use of opiate analgesic; Z79.60 Long term (current) use of unspecified immunomodulators and immunosuppressants
CPT/HCPCS: 36415; 74018; 74177; 80048; 80053; 81001; 82607; 82746; 82948; 83540; 83690; 84466; 85025; 85045; 86850; 86900; 86920; 94799; 99252; 99284; J1756; J1885; J2405; J2470; J2765; J7030; J7050; P9016; Q9967

== ENCOUNTER 2025-07-03 15:52 | Inpatient (IN) | payer BC, MEDICAID ==
[~2025-07-03] VITALS: Ht 162.6 cm; Wt 64.4 kg
[~2025-07-03 15:52] MED LIST changes: +ALBUTEROL; +AUGMENTIN 500-1 EACH PO; +BUSPIRONE HCL10 MG PO; +JANUMET 50-1,01 EACH; +LINZESS145 MCG; +MIRALAX17 GM PO; +SENOKOT-S TABL1 EACH PO; +TRESIBA FL100 UNIT/1
[2025-07-03 16:36] LABS: BASOPHILS % 0.6 % (0.0-1.0); EOSINOPHILS % 3.0 % (0.0-6.0); LYMPHOCYTES % 24.2 % (18.0-39.1); MONOCYTES % 7.0 % (4.4-11.3); NEUTROPHILS % 64.6 % (38.7-80.0); RED CELL DISTRIBUTION WIDTH 23.6 % (11.7-14.4)
[2025-07-03 17:07] LABS: EST GLOMERULAR FILTRATION RATE 100.0 ML/MIN (>=60)
[2025-07-03 17:27] LABS: LEUKOCYTE ESTERASE ,URINE TRACE (NEGATIVE); PROTEIN,URINE DIPSTICK NEGATIVE (NEGATIVE); URINE UROBILINOGEN 0.2 mg/dL (0.2 - 1)
[2025-07-03 17:28] LABS: EPITHELIAL CELLS,URINE FEW /LPF
[2025-07-03] MEDS: SODIUM CHLORIDE 0.9% 1000ML 1,000 ML IV SCH (20:28)
[2025-07-03 20:36] VITALS: PULSE 84; RESP 16; TEMP 98
[2025-07-03 21:00] VITALS: BP 129/82; O2SAT 99
[2025-07-03 21:26] VITALS: BP 129/84; PULSE 83; RESP 17; TEMP 97.9; O2SAT 98
[2025-07-03 22:24] VITALS: BP 129/84; PULSE 83; RESP 17; TEMP 97.9; O2SAT 98
[2025-07-03] MEDS ORDERED: ACETAMINOPHEN 325 MG TAB PO PRN (23:30)
[2025-07-04] VITALS (7 sets, daily range): BP systolic 134–147; BP diastolic 91–95; PULSE 85–107; RESP 17–18; TEMP 97.5–98.2; O2SAT 99–100
[2025-07-04] MEDS: ACETAMINOPHEN 325 MG TAB PO PRN (00:44)
[2025-07-04 06:56] LABS: BASOPHILS % 0.2 % (0.0-1.0); EOSINOPHILS % 0.0 % (0.0-6.0); LYMPHOCYTES % 15.9 % (18.0-39.1); MONOCYTES % 0.9 % (4.4-11.3); NEUTROPHILS % 82.1 % (38.7-80.0); RED CELL DISTRIBUTION WIDTH 24.1 % (11.7-14.4)
[2025-07-04 07:20] LABS: EST GLOMERULAR FILTRATION RATE 87.0 ML/MIN (>=60)
[2025-07-04] MEDS ORDERED: ONDANSETRON HCL 4 MG ORAL DISINTEGRATING TAB PO PRN (11:00)
[2025-07-04] MEDS ORDERED: DEXTROSE 50% SYRINGE 50 ML IV PRN (11:15)
[2025-07-04] MEDS: INSULIN LISPRO 100 UNIT/1 ML 3ML VIAL SQ SCH (12:25)
[2025-07-04 14:09] LABS: % IRON SATURATION 15 % (15-50)
[2025-07-04] MEDS ORDERED: IOPAMIDOL 370 MG/ML 100 ML INFUS..BTL INJ ONE (14:20)
[2025-07-04] MEDS: GABAPENTIN 100 MG CAP PO SCH (14:27)
[2025-07-04] MEDS: BUSPIRONE HCL 10 MG TABLET PO SCH (14:27)
[2025-07-04] MEDS: SENNA-S TABLET PO SCH (17:00)
[2025-07-04] MEDS: POLYETHYLENE GLYCOL 3350 17 GM PACK PO SCH (17:00)
[2025-07-04] MEDS: LORAZEPAM 0.5 MG TAB PO SCH (17:14)
[2025-07-04] MEDS ORDERED: ATORVASTATIN 10 MG TAB PO SCH (21:00)
[2025-07-04] MEDS ORDERED: METOPROLOL SUCCINATE 50 MG TAB XL PO SCH (21:00)
[2025-07-05] MEDS ORDERED: LEVOTHYROXINE SODIUM 75 MCG TAB PO SCH (06:00)
[2025-07-05] MEDS ORDERED: PANTOPRAZOLE SOD 40 MG TABEC PO SCH (07:30)
[2025-07-05] MEDS ORDERED: POTASSIUM CHLORIDE 10MEQ EA PO SCH (09:00)
[2025-07-05] MEDS ORDERED: DULOXETINE HCL 30 MG DELAYED RELEASE PO SCH (09:00)
== END 2025-07-04 21:00 | disposition home or self-care (01) | DRG 93 ==
LOC: ER 16:15 → ERHOLD 18:01 → MED/SURG3 20:52
PROVIDERS: ADMIT Internal Medicine; ATTEND Internal Medicine
DX: G92.8 Other toxic encephalopathy (principal); G31.84 Mild cognitive impairment of uncertain or unknown etiology; E11.9 Type 2 diabetes mellitus without complications; R10.9 Unspecified abdominal pain; F32.9 Major depressive disorder, single episode, unspecified; F41.9 Anxiety disorder, unspecified; I10 Essential (primary) hypertension; E03.9 Hypothyroidism, unspecified; K21.9 Gastro-esophageal reflux disease without esophagitis; E78.5 Hyperlipidemia, unspecified; D64.9 Anemia, unspecified; R56.9 Unspecified convulsions; F40.240 Claustrophobia; R53.83 Other fatigue; E11.65 Type 2 diabetes mellitus with hyperglycemia; G31.89 Other specified degenerative diseases of nervous system; Z79.84 Long term (current) use of oral hypoglycemic drugs; Z79.891 Long term (current) use of opiate analgesic; Z85.3 Personal history of malignant neoplasm of breast; Z90.12 Acquired absence of left breast and nipple; Z79.890 Hormone replacement therapy; Z92.3 Personal history of irradiation; Z85.841 Personal history of malignant neoplasm of brain
CPT/HCPCS: 36415; 70450; 70486; 74177; 80053; 81001; 82140; 82550; 82607; 82746; 82948; 83540; 84466; 84484; 85025; 93306; 93880; 99284; J7030; Q9967